=== PATIENT | female | born 1975 | race Caucasian/White ===

== ENCOUNTER 2022-12-27 10:20 | Emergency (ER) | payer OTHER ==
[~2022-12-27] VITALS: Ht 170.2 cm; Wt 56.8 kg
[2022-12-27 10:25] VITALS: TEMP 98.4
[2022-12-27 12:30] VITALS: BP 125/75; PULSE 78
== END 2022-12-27 12:30 | disposition home or self-care (01) ==
LOC: COL.ER 10:20
DX: T18.108A Unspecified foreign body in esophagus causing other injury, initial encounter (principal); Z28.310 Unvaccinated for COVID-19